=== PATIENT | female | born 1985 | race Caucasian/White ===

== ENCOUNTER 2023-09-22 07:45 | Outpatient (CLI) | payer BC, SELFPAY ==
[2023-09-26 06:12] LABS: Neisseria gonorrhoeae, NAA Negative (Negative)
== END 2023-09-22 23:59 ==
LOC: LAB.DROPOF 09-25 07:45
PROVIDERS: PCP Obstetrics & Gynecology; Visit Provider Obstetrics & Gynecology
DX: Z34.91 Encounter for supervision of normal pregnancy, unspecified, first trimester (principal); Z3A.08 8 weeks gestation of pregnancy
CPT/HCPCS: 87491; 87591

== ENCOUNTER 2023-09-22 11:47 | Outpatient (CLI) | payer BC, SELFPAY ==
--- NOTE | 2023-09-22 11:53 | US_ITS ---
PROCEDURE: US OB <= 14 WEEKS FETUS CLINICAL INDICATION: Dates-US OB before 14 wks COMPARISON: No exams were available for comparison FINDINGS: Transvaginal sonographic images of the pelvis were obtained. From her last menstrual period she is 8weeks 1day. An intrauterine gestational sac is present. A pole is not seen. The gestational sac correlates to a gestational age of 6weeks 1day. heart tones are not seen. Yolk sac is noted. The yolk sac measures 4.3mm. The right ovary is seen and appears normal. There is a follicle in the right ovary that measures 3.3 cm x 3.3 cm x 2.2 cm. The left ovary is seen and appears normal. There is no fluid in the cul-de-sac. IMPRESSION: 1. Anteverted uterus normal in shape and size. 2. Within the uterine cavity is a gestational sac and yolk sac but no fetus or heartbeat is seen. 3. There are internal echoes within the gestational sac. 4. There is a 3.3 cm follicle on the right ovary. 5. No fluid in the cul-de-sac. 6. Suggest serial beta HCGs and possible repeat ultrasound in 1 week. 7. Physician was notified. Dictated by: Luis Malcolm MD 09/23/2023 09:46 Luis Malcolm MD in OV 09/23/2023 09:46
[2023-09-22 12:52] LABS: Basophils # 0.1 K/mm3 (0-0.2); Basophils % 0.7 % (0.1-2.0); Eosinophils # 0.1 K/mm3 (0.0-0.4); Eosinophils % 2.1 % (0.1-12.0); Hematocrit 42.4 % (37.0-47.0); Hemoglobin 14.7 g/dL (12.2-16.2); Lymphocytes # 1.8 K/mm3 (0.7-4.5); Lymphocytes % 27.4 % (10-50); Mean Corpuscular HGB Conc 34.7 g/dL (31.8-35.4); Mean Corpuscular Hemoglobin 30.8 pg (27.0-31.2); Mean Corpuscular Volume 88.8 fl (81-99); Mean Platelet Volume 8.6 fl (7.4-10.4); Monocytes # 0.5 K/mm3 (0.1-1.0); Monocytes % 7.5 % (1.7-9.3); Neutrophils # 4.1 K/mm3 (1.8-7.8); Neutrophils % 62.3 % (37.0-80.0); Platelet Count 275 K/mm3 (142-424); Red Blood Count 4.78 M/mm3 (4.20-5.40); White Blood Count 6.7 K/mm3 (4.8-10.8)
[2023-09-22 15:55] LABS: HCG,Quantitative 21423 mIU/ml (0-5.42)
== END 2023-09-22 23:59 ==
LOC: RAD 11:49
PROVIDERS: PCP Family Medicine; Visit Provider Obstetrics & Gynecology
DX: Z34.91 Encounter for supervision of normal pregnancy, unspecified, first trimester (principal); Z3A.08 8 weeks gestation of pregnancy
CPT/HCPCS: 36415; 76801; 84144; 84702; 85025

== ENCOUNTER 2023-09-26 10:56 | Outpatient (CLI) | payer BC, SELFPAY ==
[2023-09-26 12:28] LABS: HCG,Quantitative 25226 mIU/ml (0-5.42)
== END 2023-09-26 23:59 ==
LOC: LAB 10:57
PROVIDERS: PCP Family Medicine; Visit Provider Obstetrics & Gynecology
DX: O36.80X0 Pregnancy with inconclusive fetal viability, not applicable or unspecified (principal); Z3A.08 8 weeks gestation of pregnancy
CPT/HCPCS: 36415; 84702

== ENCOUNTER 2023-10-02 10:33 | Outpatient (CLI) | payer BC, SELFPAY ==
--- NOTE | 2023-10-02 10:33 | US_ITS ---
PROCEDURE: US OB <= 14 WEEKS FETUS CLINICAL INDICATION: confirm viability COMPARISON: US US OB <= 14 WEEKS FETUS from 09/22/2023 FINDINGS: Transvaginal sonographic images of the pelvis were obtained. From her last menstrual period she is 9weeks 4days. An intrauterine gestational sac is present with no pole seen. The gestational sac measures 1.3 cm. This correlates to a gestational age of 6weeks 1day. heart tones are absent. Yolk sac is noted. The yolk sac measures 8.2mm. The right ovary is seen and appears normal. There is a follicle in the right ovary measuring 2.6 cm x 1.6 cm x 2.1 cm. The left ovary is seen and appears normal. There is no fluid in the cul-de-sac. IMPRESSION: 1. A gestational sac is seen but no pole is present. A yolk sac is seen. 2. Internal echoes are seen within the fluid of the gestational sac. 3. There has been no interval growth of the gestational sac since her last ultrasound 10 days ago. 4. surface water technician noted that patient was bleeding. Likely blighted ovum/miscarriage. Dictated by: Luis Malcolm MD 10/02/2023 15:08 Luis Malcolm MD in OV 10/02/2023 15:08
[2023-10-02 14:43] LABS: HCG,Quantitative 25125 mIU/ml (0-5.42)
== END 2023-10-02 23:59 ==
LOC: RAD 10:33
PROVIDERS: PCP Family Medicine; Visit Provider Obstetrics & Gynecology
DX: O36.80X0 Pregnancy with inconclusive fetal viability, not applicable or unspecified (principal); Z3A.10 10 weeks gestation of pregnancy; O26.891 Other specified pregnancy related conditions, first trimester
CPT/HCPCS: 36415; 76801; 84702

== ENCOUNTER 2023-11-07 12:27 | Outpatient (CLI) | payer BC, SELFPAY ==
[2023-11-07 13:29] LABS: HCG,Quantitative < 2 mIU/ml (0-5.42)
== END 2023-11-07 23:59 ==
LOC: LAB 12:28
PROVIDERS: Visit Provider Obstetrics & Gynecology
DX: O36.80X0 Pregnancy with inconclusive fetal viability, not applicable or unspecified (principal)
CPT/HCPCS: 36415; 84702

== ENCOUNTER 2023-12-01 10:29 | Outpatient (CLI) | payer BC, SELFPAY ==
--- NOTE | 2023-12-01 10:29 | US_ITS ---
PROCEDURE INFORMATION: Exam: US Right Breast, Complete Exam date and time: 12/01/2023 10:42 AM Age: 38 years old Clinical indication: Breast pain; Right; Lump in right breast TECHNIQUE: Imaging protocol: Complete ultrasound of all four quadrants of the right breast and the retroareolar regions, including ultrasound of the axilla when performed. COMPARISON: No relevant prior studies available. FINDINGS: ULTRASOUND: Breast ultrasound findings: Sonographic images of the rice breast including the retroareolar region, all 4 quadrants and the axilla demonstrates a subcutaneous hypoechoic mass in the region of palpable concern in the right 11 o'clock axis 10 cm from the nipple measuring 0.6 x 0.4 x 0.4 cm. The finding is most consistent with a sebaceous cyst. In the right 11 o'clock axis 2 cm from the nipple is an ovoid hypoechoic solid mass measuring 1.1 x 0.6 x 1.1 cm in dimension. The finding is likely benign in etiology, reflecting a benign fibroadenoma. A similar-appearing hypoechoic solid-appearing mass is noted in the right 12 o'clock axis 3 cm from the nipple measuring 0.7 x 0.3 x 0.9 cm. Minimal subcentimeter cystic change in the right 10 o'clock axis. No architectural distortion or acoustical shadowing. No skin thickening or axillary adenopathy. IMPRESSION: 1. Palpable abnormality in the right breast corresponds to a sebaceous cyst. 2. Two solid masses in the right breast are likely benign in etiology. A six-month follow-up targeted right breast ultrasound is recommended to ensure stability over time. ASSESSMENT: BI-RADS Category 3: Probably benign.
== END 2023-12-01 23:59 | disposition home or self-care (01) ==
LOC: RAD 10:29
PROVIDERS: PCP Family Medicine; Visit Provider Obstetrics & Gynecology
DX: N64.59 Other signs and symptoms in breast (principal); N63.10 Unspecified lump in the right breast, unspecified quadrant
CPT/HCPCS: 76641

== ENCOUNTER 2025-05-28 16:32 | Outpatient (CLI) | payer BC, SELFPAY | END 2025-05-28 23:59 | disposition home or self-care (01) | LOC: LAB 16:32 | PROVIDERS: Visit Provider Obstetrics & Gynecology | DX: Z34.90 Encounter for supervision of normal pregnancy, unspecified, unspecified trimester (principal); N92.6 Irregular menstruation, unspecified; Z3A.00 Weeks of gestation of pregnancy not specified | CPT/HCPCS: 36415; 84144; 84702 ==

== ENCOUNTER 2025-07-31 16:29 | Outpatient (CLI) | payer BC, SELFPAY ==
--- OUTSIDE RECORDS SUMMARY | 2025-07-31 16:32 | XMS_ITS | Clinical Summary ---
Author Organization [facility] [facility] Address [address] [place] [id number] Phone Care Team Providers Care Plant Custodian Name Role Phone Natanael Trevino MD Primary Care Physician [phone] [ ] Conditions or Problems Problem Name Problem Code Onset Date Status Entry Date Provider Comment Standard Description Annotate Urinary Tract Infection 85723374 (SNOMED CT) 11/23 Inactive 11/23 Natanael Trevino MD Urinary tract infectious disease Body mass index (BMI) 27.0-27.9; adult Z68.27 (ICD-10-CM ) 11/20 Active 11/20 Mercedes Mixon APRN Body mass index [BMI] 27.0-27.9, adult Body mass index (BMI) 27.0-27.9; adult Z68.27 (ICD-10-CM ) 10/24 Correction 10/24 Mercedes Mixon APRN Body mass index [BMI] 27.0-27.9, adult Dysuria 18047539 (SNOMED CT) 11/20 Active 11/20 Mercedes Mixon APRN Dysuria Polycystic ovaries 94252921 (SNOMED CT) 10/24 Active 10/24 Natanael Trevino MD Polycystic ovaries Body mass index (BMI) 27.0-27.9; adult Z68.27 (ICD-10-CM ) 10/24 Removed 10/24 Natanael Trevino MD Body mass index [BMI] 27.0-27.9, adult Document Control Supervisor well woman exam 954797385 (SNOMED CT) 10/24 Inactive 10/24 Natanael Trevino MD Well woman health examination STD SCREENING 668173306 (SNOMED CT) 10/24 Inactive 10/24 Natanael Trevino MD Venereal disease screening FAMILY PLANNING 002758920 (SNOMED CT) 10/24 Active 10/24 Natanael Trevino MD Contraception care Medications Medication Instructions Start Date Stop Date Generic Name NDC Provider IBUPROFEN 800 MG TABS TAKE 1 TABLET EVERY 8 HOURS NEEDED FOR PAIN IBUPROFEN [id number] Stephani Altman DMD IBUPROFEN 600 MG TABS TAKE 1 TABLET EVERY 8 HOURS NEEDED FOR PAIN IBUPROFEN [id number] Stephani Altman DMD AMOXICILLIN 500 MG TABS TAKE 1 TABLET EVERY 8 HOURS AMOXICILLIN [id number] Jesurafi Singh DMD CHLORHEXIDINE GLUCONATE 0.12 % SOLN RINSE TWICE DAILY WITH 1/2 OZ FOR 1 MINUTE CHLORHEXIDINE GLUCONATE [id number] Jesu Dayacle DMD IBUPROFEN 600 MG TABS TAKE 1 TABLET EVERY 6 HOURS NEEDED FOR PAIN IBUPROFEN 34961803847 Jesu Dayacle DMD AMPICILLIN 500 MG CAPS TAKE 1 CAPSULE BY MOUTH four times daily FOR 10 DAYS AMPICILLIN [id number] Natanael Trevino MD Medications Administered No information available. Allergies, Adverse Reactions, Alerts Observed no known allergies at Results Date Name Value Unit Range Flag Description Office Visit: pap / std test ing 9 PREG TST URN negative beta HC G, urine, semiquantitative Lab Report: HIV 1/2 ANTIGEN/ ANTIBODY,FOURTH GENERATION W/RFL, HEPATITIS ... HEP C AB NON-REACTIVE NON-REACTI N Hepa titis C virus Ab [Presence] in Serum Lab Report: THINPREP TIS PAP AND HPV mRNA E6/E7, CHLAMYDIA/N.GONORRHOEAE ... HPV RESULT Not Detected Not Detect N Hu man papilloma virus identified in Specimen Office Visit: UTI SX /RM 1 SPEC GR URIN 1.030 Specific gravity of Urine by Test strip PH URINE 6.0 pH of Urine by Test strip APPEARANCE U clear Appearan ce of Urine UA COLOR yellow Color of Uri ne GLUCOSE, URN negative Glucose [Mass/volume] in Urine by Test strip BILIRUBIN UR negative Bilirub in.total [Presence] in Urine by Test strip KETONES URN negative Ketones [Mass/volume] in Urine by Test strip BLOOD UR DIP negative blood i n urine (hemoglobin) by dipstick PROTEIN, URN negative protein , urine, semiquantitative (dipstick) UROBILINOGEN negative Urobili nogen [Presence] in Urine by Test strip NITRITE URN negative Nitrite [Presence] in Urine by Test strip WBC DIPSTK U negative Leukocy te esterase [Presence] in Urine by Test strip Plan of Care Type Date Detail Pending order Urine Dip Auto 8 1003 Pending order T1 G.C. Chlamydi a Pending order T1 Urine Culture Pending order Test 8 1025 Pending order T1 Hep C Ab Pending order T1 HIV 1/2 Ag & Ab 4th gen -consent required Pending order T1 RPR w/ reflex to titer & confirmation Pending order T1 ThinPrep w HR HPV/GC/Chlamydia mRNA E6/E7 Patient education Patient Educat ion Given Procedures Code Procedure Name Date Entry Date [facility] [place]-[id number] Medication Reconciliation CPT-3074F Most recent systolic blood pressure <130 mm Hg CPT-3078F Most recent diastoli c blood pressure <80 mm Hg CPT-26865 Urine Dip Auto 03368 [facility] 06527 T1 G.C. Chlamydia [facility] 395 T1 Urine Culture CPT-69988 Test 20882 CPT-3074F Most recent systolic blood pressure <130 mm Hg CPT-3078F Most recent diastoli c blood pressure <80 mm Hg [facility] [place]-[id number] Medication Reconciliation [facility] 8472 T1 Hep C Ab [facility] 11096 T1 HIV 1/2 Ag & Ab 4 th gen -consent required [facility] 37972 T1 RPR w/ reflex to titer & confirmation [facility] 39729 T1 ThinPrep w HR HPV /GC/Chlamydia mRNA E6/E7 [facility] [place]-[id number] Medication Reconciliation Vital Signs Date Name Value Unit Description BMI (Body Mass Index) 27.17 kg/m2 Bod y Mass Index (Ratio) Body Temperature 98.4 [degF] temperat ure E&M Body Temperature 36.89 Minda temperat ure in centigrade E&M BP Diastolic 71 mm[Hg] blood pressu re, diastolic BP Systolic 109 mm[Hg] blood pressur e, systolic BSA (Body Surface Area) 1.72 b josé miguel surface area Heart Rate 65 /min pulse rate Height 62 [in_us] height E&M Height 157.48 cm height in cent imeters E&M Respiratory Rate 18 /min respirat ory rate E&M Weight Measured 67.27 kg weight in kilograms E&M Weight Measured 148 [lb_av] weight E& M Weight Measured 148 [lb_av] weight E& M Immunizations No information available. Advance Directives No information available.
--- OUTSIDE RECORDS SUMMARY | 2025-07-31 16:33 | XMS_ITS | Encounter Summary ---
Author Organization [place] [address] Care Team Providers Care Executive Business Coach Name Role Phone Savannah Vila MD Primary Care Provider [phone] Reason for Visit * Reason Onset Date Comments Results 04/21/2025 MM MAMMO DIGITAL YARIEL DIAGN BILAT04/19/25 Encounter Details Date Type Department Care Team (Late st Contact Info) Description 04/21/2025 Results Follow-Up [facility] [address] [place] [address] Savannah Vila MD [address] [place] [address] MM MAMMO DIGITAL YARIEL DIAGN BILAT Social History Tobacco Use Types Packs/Day Years Used Date Smoking Tobacco: Never Smokeless Tobacco: Never Alcohol Use Standard Drinks/Week Comments No 0 (1 standard drink = 0.6 oz pur e alcohol) PHQ-2 Answer Date Recorded PHQ-2 Score 0 01/03/2019 Comments No Sex and Gender Information Value Date Recorded Sex Assigned at Not on file Legal Sex Female 8:08 AM EST Gender Identity Not on file Sexual Orientation Not on file documented as of this encounter Miscellaneous Notes * Telephone Encounter - Lisa Tejada MA - 04/21/2025 3:42 PM EDT Select the most appropriate reason for this telephone message: Patient Calling for Results Patient called for results on Imaging MM MAMMO DIGITAL YARIEL DIAGN BILAT Which Provider ordered the test? Savannah Vila MD Date of test: 04/19/25 Advised patient of: normal result of no suspicious masses. Patient Instructions/ Questions: Pt advised to proceed with US of right breast ordered on 03/12/25 and verbalized understanding. Medications Ordered/Pended (if yes, list medication): No Medications/Orders Needed (if yes, list orders): No Pharmacy Location Verified: No Other: Please put in the patient results note that patient is aware of the following results Savannah Vila MD 04/21/2025 7:14 AM EDT Mammogram showed no suspicious masses Patient left prior to completing diagnostic workup. Sonographic evaluation of the right breast is recommended to evaluate previously seen right breast findings on outside health system ultrasound 12/01/2023. Encourage returning for the additional images documented in this encounter Plan of Treatment Not on file documented as of this encounter Goals Goal Patient Goal Type Associated Problems Recent Progress Patient-Stated? Author Maintain a healthy diet, exercise regularly and maintain an ideal body weight General No Karrie Kumar RMA documented as of this encounter Visit Diagnoses Not on filedocumented in this encounter Care Teams Executive Business Coach Relationship Specialty Start Date End Date Savannah Vila MD [address] [place] [address] PCP - General Family Medicine 10/09/18 documented as of this encounter
--- OUTSIDE RECORDS SUMMARY | 2025-07-31 16:33 | XMS_ITS | Clinical Summary ---
Author Organization [facility] Address [address] [place] [address] Phone Care Team Providers Care Dredge Pipeman Name Role Phone Savannah Vila MD Primary Care Provider [phone] Allergies No known active allergies Medications cyclobenzaprine (FLEXERIL) 10 mg Oral TabletIndicatio ns:Jaw pain TAKE ONE TABLET BY MOUTH ONCE NIGHTLY 30 Tablet 2 08/15/2023 Active diclofenac (VOLTAREN) 75 mg Oral Tablet, Delayed Release (E.C.)Indicatio ns:Jaw pain TAKE ONE TABLET BY MOUTH TWICE A DAY WITH A MEAL 60 Tablet 2 08/15/2023 Active Active Problems No known active problems Immunizations Immunization Administration Dates Next Due Hepatitis B (Recombinant), Adjuvanted 01/25/2023 Tdap 08/12/2022 Surgical History Surgery Date Site/Laterality Comments LEEP 08/14/2009 - 08/13/2010 WISDOM TOOTH EXTRACTION DILATION AND CURETTAGE OF UTERUS Medical History Medical History Date Comments HSV-2 infection Family History Medical History Relation Name Comments Diabetes Father Ovarian Cancer Maternal Aunt Stroke Maternal Grandfather Diabetes Mother Stroke Paternal Grandfather Breast Cancer Paternal Grandmother Polycystic Ovarian Syndrome Sister Relation Name Status Comments Father Maternal Aunt Maternal Grandfather Mother Paternal Grandfather Paternal Grandmother Sister Social History Tobacco Use Types Packs/Day Years Used Date Smoking Tobacco: Never Smokeless Tobacco: Never Tobacco Cessation:Counseling Given: Not Answered Alcohol Use Standard Drinks/Week Comments No 0 (1 standard drink = 0.6 oz pur e alcohol) PHQ-2 Answer Date Recorded PHQ-2 Score 0 01/03/2019 Comments No Sex and Gender Information Value Date Recorded Sex Assigned at Not on file Legal Sex Female 8:08 AM EST Gender Identity Not on file Sexual Orientation Not on file Obstetrics History Para Term AB IAB SAB Ectopic Multiple Livin g Live Births 1 Last Filed Vital Signs Vital Sign Reading Time Taken Comments Blood Pressure 100/60 03/05/2025 5:00 PM EDT Pulse 64 03/05/2025 5:00 PM EDT Temperature 37 C (98.6 F) 03/05/2025 5:00 PM EDT Respiratory Rate 16 03/05/2025 5:00 PM EDT Oxygen Saturation 98% 03/05/2025 5:00 PM EDT Inhaled Oxygen Concentration - - Weight 61.7 kg (136 lb) 04/19/2025 10:00 AM EDT Height 160 cm (5' 3 ) 04/19/2025 10:00 AM EDT Body Mass Index 24.09 04/19/2025 10:00 AM EDT Plan of Treatment Health Maintenance Due Date Last Done Comments HPV/Pap Cotest 2017 Hepatitis B Vaccine (2 of 2 - CpG 2-dose series) 02/22/2023 01/25/2023 COVID-19 Vaccine (1 - 2024-2 6 season) 2025 Influenza Vaccine (#1) 2025 Cervical Cancer Screening 01/25/2026 Pap Smear 01/25/2026 01/25/2023, 10/09/2018 Annual Wellness Exam 03/05/2026 03/05/2025 DTaP/TDaP/Td (2 - Td or Tdap) 08/12/2032 08/12/2022 Meningococcal B Vaccine Aged Out No l onger eligible based on patient's age to complete this topic Pneumococcal Vaccine 0-49 Aged Out No longer eligible based on patient's age to complete this topic Goals Goal Patient Goal Type Associated Problems Recent Progress Patient-Stated? Author Maintain a healthy diet, exercise regularly and maintain an ideal body weight General No Karrie Kumar RMA Procedures Procedure Name Priority Date/Time Associated Diagnosis Comments MANAGER CONSUMER INSIGHTS CYTOLOGY REQUEST (PAP ONLY) Routine 01/25/2023 9:11 AM EDT Well adult exam Pap smear, as part of routine gynecological examination from Last 3 Months or Most Recently Relevant to Health Maintenance Results * MANAGER CONSUMER INSIGHTS CYTOLOGY REQUEST (PAP ONLY) (01/25/2023 9:11 AM EDT) CASE REPORT Gynecologic Cytology Report Case: [id number] Authorizing Provider: Savannah Vila MD Collected: 01/25/2023910 Ordering Location: [facility] Received: 01/25/2023 0911 First Screen: Betty Larson CT Specimen: LIQUID-BASED PAP - CERVICAL/ENDOCERV ICAL, Cervix, Endocervical 01/26/2023 1:08 PM EDT [facility] PAP FINAL DIAGNOSIS Negative for intraepithelial lesion or malignancy 01/26/2023 1:08 PM EDT [facility] at 1308 EDT MICROSCOPIC DESCRIPTION Microscopic examination is performed and the findings corroborate the diagnosis. 01/26/2023 1:08 PM EDT [facility] PAP SMEAR ADEQUACY Satisfactory for evaluation 01/26/2023 1:08 PM EDT [facility] ENDOCERVICAL T-ZONE Transformation zone present 01/26/2023 1:08 PM EDT [facility] EMBEDDED IMAGES 1:08 PM EDT [facility] PAP DISCLAIMER The Pap Smear is a screening test that aids in the detection of cervical cancer and cancer precursors. Both false positive and false negative results can occur. The test should be used at regular intervals, and positive results should be confirmed before definitive therapy. Processed using the ThinPrep Manager Functional Automated cytology screening device (eBrevia). 01/26/2023 1:08 PM EDT [facility] Thin Prep ENDOCERVICAL STRUCTURE / Unknown 01/25/2023 9:11 AM EDT 01/25/2023 9:11 AM EDT us Savannah Vila MD CYTOLOGY ORDERABLES Final Res ult [facility] [address] [place] [address] from Last 3 Months or Most Recently Relevant to Health Maintenance Insurance [id number] [id number] [employer] [id number] [place] [phone] [employer] Care Teams Dredge Pipeman Relationship Specialty Start Date End Date Savannah Vila MD [address] [place] [address] [place] [address] PCP - General Family Medicine 10/09/18
[2025-07-31 18:36] LABS: Hepatitis C Ab Qual. W/ RFX NEGATIVE (Negative)
[2025-08-01 08:36] LABS: RPR W/RFX Titers Nonreactive (Nonreactive)
== END 2025-07-31 23:59 | disposition home or self-care (01) ==
LOC: LAB 16:29
PROVIDERS: Visit Provider Obstetrics & Gynecology
DX: Z72.51 High risk heterosexual behavior (principal); Z20.2 Contact with and (suspected) exposure to infections with a predominantly sexual mode of transmission
CPT/HCPCS: 36415; 86592; 86696; 86803; 87389; 87491; 87591; 87661